=== PATIENT | female | born 1975 | race Caucasian/White ===

== ENCOUNTER 2018-05-14 12:43 | Emergency (ER) | payer BC, OTHER ==
[~2018-05-14] VITALS: Ht 154.9 cm; Wt 54.5 kg
[2018-05-14 12:59] VITALS: Ht 154.9 cm; Wt 54.5 kg
[2018-05-14] MEDS ORDERED: KETOROLAC 30 MG INJ IM STA (15:29)
[2018-05-14] MEDS ORDERED: IBUP-1561 PO (16:31)
[2018-05-14] MEDS ORDERED: HYDR-4011 PO (16:31)
[2018-05-14 17:15] VITALS: BP 128/81; PULSE 71; RESP 19
--- NOTE | 2018-05-14 18:11 | ERD ---
ER Documentation Chief Complaint Chief Complaint RIGHT ARM PAIN/INJURY DUE TO FALL HPI 43-year-old female patient with no significant past medical history presents to ED complaining of right arm injury due to mechanical fall. Patient actually tripped over a weight plate that was 35 pounds, caught her fall with her right hand and felt pain instantaneously of her right elbow. Denies any head or neck injuries. Discussed pain is sharp and rates a 9 out of 10. States that she does not take any medications. Denies any loss of sensation, loss of range of motion, recent redness or swelling, fever, chills. ROS All systems reviewed and are negative except as per history of present illness. Medications Home Meds Active Scripts Ibuprofen* (Motrin*) 400 Mg Tab, 400 MG PO Q6, #30 TAB Prov:OPAL JUAREZ PA-C 05/14/18 Hydrocodone/Acetaminophen (Miller 5-325 Tablet) 1 Each Tablet, 1 TAB PO QHS PRN for PAIN, #10 TAB Prov:OPAL JUAREZ PA-C 05/14/18 Allergies Allergies: Coded Allergies: No Known Allergy (Unverified , 05/14/18) PMhx/Soc Medical and Surgical Hx: pt denies Medical Hx, pt denies Surgical Hx Hx Alcohol Use: No Hx Substance Use: No Hx Tobacco Use: No Smoking Status: Never smoker FmHx Family History: No diabetes, No coronary disease Physical Exam Vitals Vital Signs Date Temp Pulse Resp B/P (MAP) Pulse Ox O2 O2 Flow FiO2 Time Delivery Rate 05/14/18 97.9 71 19 128/81 99 Room Air 17:15 (97) 05/14/18 97.9 80 19 131/85 99 12:59 (100) Physical Exam Const: [id number], well-nourished. In no acute distress. Head: Atraumatic, normocephalic Eyes: Normal Conjunctiva without injection ENT: Normal external ear, nose and mouth. Neck: Full range of motion. No meningismus. Resp: Clear to auscultation bilaterally. No wheezing, rhonchi, rales, or cr ackles. No accessory muscle use. No retractions. Cardio: Regular rate and rhythm, no murmurs Skin: No petechiae or rashes Back: No midline tenderness. No CVA tenderness. Ext: No cyanosis, or edema. Cap refill less than 2 seconds. Distal pulses intact bilaterally. Tenderness palpation of the right olecranon. No erythema, edema. No fluctuance or induration. Limited range of motion of left elbow. Neur: Awake and alert. Normal gait and coordination. Muscle strength 5/5. Sensation intact bilaterally. Psych: Normal Mood and Affect Results 24 hrs Laboratory Tests Test 05/14/18 15:38 POC Beta HCG, Qualitative NEGATIVE Current Medications Medications Dose Sig/Naomy Start Time Status Last (Trade) Ordered Route PRN Stop Time Admin Dose Reason Admin Ketorolac 30 mg ONCE STAT 05/14/18 DC 05/14/18 Tromethamine IM 15:29 15:51 (Toradol) 05/14/18 15:32 Procedures/MDM 43-year-old female patient with no significant past medical history presents to the ED complaining of right arm injury. Patient is afebrile and nontoxic- appearing. IMPRESSION: 1. Large elbow joint effusion with suspicion for acute nondisplaced fracture along the lateral margin of the radial head/neck. Patient is placed in a long arm splint. Splint Assessment: Neurovascularly intact pre and post splint placement with good fit. Patient's extremity symptoms have stabilized while they have been evaluated in the department and are appropriate for outpatient follow up. No evidence of fractures, dislocations, compartment syndrome, neurologic injury, vascular injury, open joint, open fracture, tendon laceration, septic arthritis, osteomyelitis, DVT, foreign body, or other emergent conditions. Diagnosis: Elbow Fracture Discharge medications: Ibuprofen, Miller Follow up with primary care physician in 1-2 days for a referral to see an orthopedic physician. Instructed patient to return to the ED sooner for any worsening symptoms. Patient's questions were answered. Patient is hemodynamically stable. Patient understood and agreed with discharge plan. Patient discharged stable. Disclaimer: Inadvertent spelling and grammatical errors are likely due to EHR/dictation software use and do not reflect on the overall quality of patient care. Also, please note that the electronic time recorded on this note does not necessarily reflect the actual time of the patient encounter. Departure Diagnosis: Primary Impression: Elbow fracture Encounter type: initial encounter Fracture type: closed Laterality: right Qualified Codes: S42.401A - Unspecified fracture of lower end of right humerus, initial encounter for closed fracture Condition: Stable Patient Instructions: Elbow Fracture Referrals: [facility] YOU HAVE RECEIVED A MEDICAL SCREENING EXAM AND THE RESULTS INDICATE THAT YOU DO NOT HAVE A CONDITION THAT REQUIRES URGENT TREATMENT IN THE EMERGENCY DEPARTMENT. FURTHER EVALUATION AND TREATMENT OF YOUR CONDITION CAN WAIT UNTIL YOU ARE SEEN IN YOUR DOCTORS OFFICE WITHIN THE NEXT 1-2 DAYS. IT IS YOUR RESPONSIBILITY TO MAKE AN APPOINTMENT FOR FOLOW-UP CARE. IF YOU HAVE A PRIMARY DOCTOR --you should call your primary doctor and schedule an appointment IF YOU DO NOT HAVE A PRIMARY DOCTOR YOU CAN CALL OUR PHYSICIAN REFERRAL HOTLINE AT IF YOU CAN NOT AFFORD TO SEE A PHYSICIAN YOU CAN CHOSE FROM THE FOLLOWING [facility] [address] [facility]. [facility] [address] [facility] [facility] [address] [facility] [facility] [address] [facility] [facility] [address] [facility]. [facility] [address] [facility]. [facility] YOU HAVE RECEIVED A MEDICAL SCREENING EXAM AND THE RESULTS INDICATE THAT YOU DO NOT HAVE A CONDITION THAT REQUIRES URGENT TREATMENT IN THE EMERGENCY DEPARTMENT. FURTHER EVALUATION AND TREATMENT OF YOUR CONDITION CAN WAIT UNTIL YOU ARE SEEN IN YOUR DOCTORS OFFICE WITHIN THE NEXT 1-2 DAYS. IT IS YOUR RESPONSIBILITY TO MAKE AN APPOINTMENT FOR FOLOW-UP CARE. IF YOU HAVE A PRIMARY DOCTOR --you should call your primary doctor and schedule and appointment IF YOU DO NOT HAVE A PRIMARY DOCTOR YOU CAN CALL OUR PHYSICIAN REFERRAL HOTLINE AT . IF YOU CAN NOT AFFORD TO SEE A PHYSICIAN YOU CAN CHOSE FROM THE FOLLOWING [facility] INSTITUTIONS: [facility] [address] [place] [address] [facility] [address] [place] [address] [facility] [address] [place] [address] [facility] Urgent Care 7 a.m.- 11 p.m. Every Day of the Week NO APPOINTMENT OR AUTHORIZATION NEEDED SO [facility] Hours: Mon-Fri 9:00 AM - 5:00 PM Additional Instructions: Call your primary care doctor TOMORROW for an appointment during the next 2-3 days for a referral to see an orthopedic physician.See the doctor sooner or return here if your condition worsens before your appointment time. OPAL JUAREZ PA-C May 14, 2018 18:11
== END 2018-05-14 17:42 | disposition home or self-care (01) ==
LOC: FTE 12:43
DX: S42.401A Unspecified fracture of lower end of right humerus, initial encounter for closed fracture (principal); W01.0XXA Fall on same level from slipping, tripping and stumbling without subsequent striking against object, initial encounter; Y92.9 Unspecified place or not applicable
CPT/HCPCS: 29105; 73080; 73090; 73110; 81025; 96372; 99284; J1885